=== PATIENT | male | born 1985 | race Caucasian/White ===

== ENCOUNTER 2017-05-06 03:12 | Day surgery (SDC) | payer OTHER ==
[2017-05-06] VITALS (25 sets, daily range): BP systolic 112–148; BP diastolic 55–86; PULSE 18–112; RESP 10–25; TEMP 98.3; Ht 177.8 cm; Wt 94.0 kg
[~2017-05-06] VITALS: Ht 177.8 cm; Wt 94.0 kg
[2017-05-06] MEDS ORDERED: SOD CHLORIDE 0.9% 1,000 ML IV STA (04:35)
[2017-05-06] MEDS ORDERED: morphine 4 MG/ML VIAL IV STA (04:35)
[2017-05-06] MEDS ORDERED: ONDANSETRON 4 MG INJ IV STA (04:35)
[2017-05-06 04:53] LABS: BASOPHILS % 0.1 % (0.0-2.0); EOSINOPHILS % 0.1 % (0.0-7.0); HEMATOCRIT 41.1 % (42.0-52.0); HEMOGLOBIN 13.9 g/dl (14.0-18.0); LYMPHOCYTES # 1.1 10^3/ul (0.8-2.9); LYMPHOCYTES % 7.4 % (15.0-51.0); MEAN CORPUSCULAR HEMOGLOBIN 30.2 pg (29.0-33.0); MEAN CORPUSCULAR HGB CONC 33.8 g/dl (32.0-37.0); MEAN CORPUSCULAR VOLUME 89.3 fl (82.0-101.0); MEAN PLATELET VOLUME 10.3 fl (7.4-10.4); MONOCYTE # 0.7 10^3/ul (0.3-0.9); MONOCYTES % 4.9 % (0.0-11.0); NEUTROPHIL # 12.3 10^3/ul (1.6-7.5); PLATELET COUNT 236 10^3/UL (140-415); RED CELL DISTRIBUTION WIDTH 13.1 % (11.5-14.5); WHITE BLOOD COUNT 14.2 10^3/ul (4.8-10.8)
[2017-05-06 04:59] LABS: ADD UMIC YES; UR AMORPHOUS CRYSTAL FEW /HPF (NONE SEEN); UR ASCORBIC ACID NEGATIVE (NEGATIVE); UR BILIRUBIN (Dip) NEGATIVE (NEGATIVE); UR BLOOD (Dip) NEGATIVE (NEGATIVE); UR CLARITY CLOUDY (CLEAR); UR COLOR YELLOW (YELLOW); UR GLUCOSE (Dip) 1+ mg/dL (NEGATIVE); UR KETONES (Dip) NEGATIVE (NEGATIVE); UR LEUKOCYTE ESTERASE (Dip) NEGATIVE Leu/ul (NEGATIVE); UR NITRITE (Dip) NEGATIVE (NEGATIVE); UR RBC 0 /HPF (0-5); UR SPECIFIC GRAVITY (Dip) 1.023 (1.003-1.030); UR TOTAL PROTEIN (Dip) 1+ mg/dl (NEGATIVE); UR UROBILINOGEN (Dip) NEGATIVE (NEGATIVE)
[2017-05-06 05:13] LABS: INR 1.04; PROTIME 13.6 Sec (12.2-14.2); PT RATIO 1.1
[2017-05-06 05:14] LABS: PARTIAL THROMBOPLASTIN TIME 32.7 Sec (25.0-35.0)
[2017-05-06 05:37] LABS: ALBUMIN 4.7 g/dl (3.3-4.9); ALBUMIN/GLOBULIN RATIO 1.27; BILIRUBIN,INDIRECT 0.5 mg/dl (0-1.1); BILIRUBIN,TOTAL 0.5 mg/dl (0.2-1.3); CALCIUM 9.3 mg/dl (8.4-10.2); CREATININE 0.78 mg/dl (0.61-1.24); TOTAL PROTEIN 8.4 g/dl (6.1-8.1)
--- NOTE | 2017-05-06 06:00 | ERA ---
ER Documentation Chief Complaint Date/Time DATE: 05/06/17 TIME: 05:49 Chief Complaint mid abd pain x 1 day, vomiting HPI 31-year-old male presenting with lower abdominal pain for 1 day. The pain started after he ate something and progressively got worse throughout the day. The pain has been constant, aching, worse with movement. Associated with nonbloody and nonbilious vomiting. He denies any associated diarrhea. No associated fevers or chills. Last BM was this morning and was normal. ROS All systems reviewed and are negative except as per history of present illness. Medications Home Meds Active Scripts Ferrous Sulfate* (Ferrous Sulfate*) 325 Mg Tabec, 325 MG PO DAILY for 30 Days, TAB Prov:JOSE J MERIDA 05/07/17 Hydrocodone Bit-Acetaminophen (Hydrocodone Bit-APAP) 5-325MG Tablet, 1 TAB PO Q4 Y for MODERATE PAIN LEVEL 4-6, #30 TAB Prov:JOSE J MERIDA 05/07/17 Docusate Sodium* (Colace*) 100 Mg Capsule, 100 MG PO BID Y for CONSTIPATION, # 30 CAP Prov:JOSE J MERIDA 05/07/17 Cephalexin* (Keflex*) 500 Mg Capsule, 500 MG PO Q8, #15 CAP Prov:JOSE J MERIDA 05/07/17 Allergies Allergies: Coded Allergies: No Known Allergy (Unverified , 05/06/17) PMhx/Soc Medical and Surgical Hx: pt denies Medical Hx, pt denies Surgical Hx History of Surgery: No Anesthesia Reaction: No Hx Neurological Disorder: No Hx Respiratory Disorders: No Hx Cardiac Disorders: No Hx Psychiatric Problems: No Hx Miscellaneous Medical Probl: No Hx Alcohol Use: Yes (REGULAR BASIS) Hx Substance Use: No Hx Tobacco Use: No Smoking Status: Never smoker FmHx Family History: No diabetes Physical Exam Vitals Vital Signs Date Time Temp Pulse Resp B/P Pulse Ox O2 Delivery O2 Flow Rate FiO2 05/06/17 04:49 98.3 67 20 120/81 97 Room Air 05/06/17 03:20 98.2 60 20 131/73 98 Physical Exam Const: Appears to be in mild distress, nontoxic Head: Atraumatic Eyes: Normal Conjunctiva ENT: Normal External Ears, Nose and Mouth. Neck: Full range of motion..~ No meningismus. Resp: Clear to auscultation bilaterally Cardio: Regular rate and rhythm, no murmurs Abd: Soft, diffuse mild tenderness, more localized in the right lower quadrant. non distended. Negative Blue sign. Normal bowel sounds Skin: No petechiae or rashes, somewhat pale Back: No midline or flank tenderness Ext: No cyanosis, or edema Neur: Awake and alert Psych: Normal Mood and Affect Result Diagram: 05/07/17 0453 05/07/17 0453 Results 24 hrs Laboratory Tests Test 05/06/17 04:25 White Blood Count 14.210^3/ul Red Blood Count 4.6010^6/ul Hemoglobin 13.9g/dl Hematocrit 41.1% Mean Corpuscular Volume 89.3fl Mean Corpuscular Hemoglobin 30.2pg Mean Corpuscular Hemoglobin Concent 33.8g/dl Red Cell Distribution Width 13.1% Platelet Count 46456^3/UL Mean Platelet Volume 10.3fl Neutrophils % 87.0% Lymphocytes % 7.4% Monocytes % 4.9% Eosinophils % 0.1% Basophils % 0.1% Nucleated Red Blood Cells % 0.0/100WBC Neutrophils # 12.310^3/ul Lymphocytes # 1.110^3/ul Monocytes # 0.710^3/ul Eosinophils # 0.010^3/ul Basophils # 0.010^3/ul Nucleated Red Blood Cells # 0.010^3/ul Prothrombin Time 13.6Sec Prothrombin Time Ratio 1.1 INR International Normalized Ratio 1.04 Activated Partial Thromboplast Time 32.7Sec Urine Color YELLOW Urine Clarity CLOUDY Urine pH 7.0 Urine Specific [place] 1.023 Urine Ketones NEGATIVEmg/dL Urine Nitrite NEGATIVEmg/dL Urine Bilirubin NEGATIVEmg/dL Urine Urobilinogen NEGATIVEmg/dL Urine Leukocyte Esterase NEGATIVELeu/ul Urine Microscopic RBC 0/HPF Urine Microscopic WBC 1/HPF Urine Amorphous Crystals FEW/HPF Urine Hemoglobin NEGATIVEmg/dL Urine Glucose 1+mg/dL Urine Total Protein 1+mg/dl Sodium Level 143mmol/L Potassium Level 4.0mmol/L Chloride Level 98mmol/L Carbon Dioxide Level 28mmol/L Anion Gap 21 Blood Urea Nitrogen 13mg/dl Creatinine 0.78mg/dl Glucose Level 157mg/dl Calcium Level 9.3mg/dl Iron Level 61ug/dl Total Iron Binding Capacity 342ug/dl Percent Iron Saturation 18% SAT Total Bilirubin 0.5mg/dl Direct Bilirubin 0.00mg/dl Indirect Bilirubin 0.5mg/dl Aspartate Amino Transf (AST/SGOT) 148IU/L Alanine Aminotransferase (ALT/SGPT) 211IU/L Alkaline Phosphatase 90IU/L Total Protein 8.4g/dl Albumin 4.7g/dl Globulin 3.70g/dl Albumin/Globulin Ratio 1.27 Lipase 66U/L Hepatitis B Surface Antigen NEGATIVE Hepatitis B Core Total Antibody NEGATIVE Hepatitis C Antibody NEGATIVE Current Medications Medications (Trade) Dose Ordered Sig/Eloy Route PRN Reason Start Time Stop Time Status Last Admin Dose Admin Sodium Chloride (NS) 1,000 ml @ 1,000 mls/hr Q1H STAT IV 05/06/17 04:35 05/06/17 05:34 DC 05/06/17 04:44 Morphine Sulfate (morphine) 4 mg ONCE STAT IV 05/06/17 04:35 05/06/17 04:37 DC 05/06/17 04:44 Ondansetron HCl (Zofran Inj) 4 mg ONCE STAT IV 05/06/17 04:35 05/06/17 04:37 DC 05/06/17 04:44 Hydromorphone HCl 1 mg 1 mg ONCE STAT IV 05/06/17 06:13 05/06/17 06:14 DC 05/06/17 06:19 Piperacillin Sod/ Tazobactam Sod (Zosyn 3.375gm/ 100 ml (Pmx)) 100 ml @ 200 mls/hr ONCE ONCE IVPB 05/06/17 06:30 05/06/17 06:59 DC 05/06/17 06:40 Ondansetron HCl (Zofran Inj) 4 mg BRIDGE ORDER PRN IV NAUSEA AND/OR VOMITING 05/06/17 07:00 05/06/17 15:15 DC Acetaminophen (Tylenol Tab) 650 mg ER BRIDGE PRN PO MILD PAIN/FEVER 05/06/17 07:00 05/06/17 15:14 DC Procedures/MDM CBC: leukocytosis CMP: mild transaminitis UA: no evidence of infection CT abdomen and pelvis MDM Patient is presenting with right lower quadrant pain, concerning for acute appendicitis. Less likely diverticulitis, colitis, perforated viscus, biliary etiology, or pancreatitis .I do not suspect aortic or cardiac etiology. CT abdomen and pelvis were ordered and is pending. Painmedications and IV fluids given. Patient was signed out to Dr. Shaffer pending results of CT. Departure Diagnosis: Primary Impression: Abdominal pain Qualified Code: R10.31 - Right lower quadrant abdominal pain Additional Impression: Nausea and vomiting Qualified Code: R11.2 - Non-intractable vomiting with nausea, unspecified vomiting type Condition: YADY Garcia MD May 06, 2017 06:00
[2017-05-06] MEDS ORDERED: HYDROmorphONE 1 MG/ML SYG IV STA (06:13)
--- NOTE | 2017-05-06 06:25 | RADRPT ---
PROCEDURE: CT ABDOMEN/PELVIS WITHOUT CONTRAST CLINICAL INDICATION: 31-year-old male with abdominal pain. TECHNIQUE: The study was performed utilizing a [employer] Mapeed VCT 64-slice CT scanner. Direct axia l sections were obtained through the abdomen and pelvis without the use of intravenous contrast mate rial. Sagittal and coronal reformations were obtained. One or more of the following dose reduction t echniques were utilized: automated exposure control, adjustment of the mA and/or kV according to pat ient's size or use of iterative reconstruction technique. The images were reviewed on a PACS workst at[employer]. CTD/vol = 18.1 mGy; Total Exam DLP = 1209.7 mGy-cm. COMPARISON: None. FINDINGS: There is trace bibasilar subsegmental atelectasis. There is no evidence for significant pleural eff usion. The liver has a normal size and contour without focal areas of abnormal density. No intrahep atic nor extrahepatic biliary ductal dilatation is seen. The gallbladder demonstrates no wall thicke analisa nor pericholecystic fluid. No biliary stones are evident. The pancreas is without areas of abno rmal attenuation. The spleen is identified and has a normal size without abnormal density. The adre nal glands are unremarkable. The right kidney is without abnormal density, calculi or obstruction. There is a mid left renal cyst measuring approximately 2.7 x 2.9 x 2.8 cm.. No hydroureteronephrosis nor nephroureterolithiasis is evident. The urinary bladder contains urine. There is no evidence for bowel obstruction. There is an appendicolith within the proximal appendix measuring approximately 5 x 5 mm. The appendix is retrocecal and diffusely edematous measuring up to 14 mm with surrounding inflammatory changes consistent with acute appendicitis. There is no significant pelvic free fluid. The prostate is not enlarged. The aortoiliac vessels are without aneurysmal dilatation. The osseous structures are intact. IMPRESSION: 1. Diffusely edematous retrocecal appendix measuring up to 14 mm with surrounding inflammatory townsend ges consist with acute appendicitis. 2. Left renal cyst. CRITICAL RESULTS: A call report was made to [facility] ER Dr. Shaffer on May 06, 2017 at 06:20 a.m. .Rito Fenton MD, MD Date Time Electronically viewed and signed by .Rito Fenton MD, on 05/06/2017 06:25 .M/
[2017-05-06] MEDS ORDERED: PIPER-TAZO 3.375 GM IV (PMX) 100 ML IVPB ONE (06:30)
--- NOTE | 2017-05-06 06:57 | QN ---
Documentation Comment Patient endorsed to me pending CT imaging. CT confirms acute appendicitis. IMPRESSION: 1. Diffusely edematous retrocecal appendix measuring up to 14 mm with surrounding inflammatory changes consist with acute appendicitis. 2. Left renal cyst. The patient was informed of these findings. His pain is well controlled. He was given Zosyn. He has received IV fluids. General surgeon on-call, Dr. Carvalho has been notified and will take the patient to the operating room today. The patient is made n.p.o. Accepting care team and consultations: I discussed the current laboratory data, diagnostic imaging and emergency care provided. Admitting team: Dr. Jim Admitting team indication: Insurance directed Consulting services: Dr. Carvalho Diagnostic impression: Acute appendicitis SINAN TAMAYO MD May 06, 2017 06:57
[2017-05-06] MEDS ORDERED: ACETAMINOPHEN 325 MG TAB PO PRN ×2 (07:00→15:30)
[2017-05-06] MEDS ORDERED: ONDANSETRON 4 MG INJ IV PRN ×4 (07:00→15:30)
[2017-05-06] MEDS ORDERED: DEXTROSE 5%-0.45% NACL 1,000 ML IV SCH (08:34)
[2017-05-06] MEDS ORDERED: NACL 0.9% 3 ML SYG IV SCH ×2 (09:00→15:30)
[2017-05-06] MEDS ORDERED: ALBUTEROL/IPRATROPIUM (NEB) 3 ML AMP HHN PRN (09:00)
[2017-05-06] MEDS ORDERED: morphine 4 MG/ML VIAL IV PRN (09:00)
[2017-05-06] MEDS ORDERED: ONDANSETRON 4 MG INJ ONE (11:19)
[2017-05-06] MEDS ORDERED: NEOSTIGMINE 3 MG/3 ML SYRINGE ONE (11:19)
[2017-05-06] MEDS ORDERED: PROPOFOL 20 ML ONE (11:19)
[2017-05-06] MEDS ORDERED: FENTAnyl 50 MCG/ML VIAL ONE ×2 (11:19→12:41)
[2017-05-06] MEDS ORDERED: CEFAZOLIN 1 GM INJ ONE (11:19)
[2017-05-06] MEDS ORDERED: MIDAZOLAM 1 MG/ML 2 ML INJ ONE (11:19)
[2017-05-06] MEDS ORDERED: DEXAMETHASONE 4 MG/ML 1 ML INJ ONE (11:19)
[2017-05-06] MEDS ORDERED: ROCURONIUM 50 MG INJ ONE (11:19)
[2017-05-06] MEDS ORDERED: GLYCOPYRROLATE 0.4 MG INJ ONE (11:19)
[2017-05-06] MEDS ORDERED: BUPIVACAINE 0.25%/EPI (SDV) 30 ML INJ ONE (11:57)
[2017-05-06] MEDS ORDERED: FENTAnyl 50 MCG/ML VIAL IV PRN ×3 (12:00)
[2017-05-06] MEDS ORDERED: LABETALOL HCL 20MG INJ IV PRN (12:00)
[2017-05-06] MEDS ORDERED: TRIMETHOBENZAMIDE 100 MG/ML VIAL IM PRN (12:00)
[2017-05-06] MEDS ORDERED: MIDAZOLAM 1 MG/ML 2 ML INJ IV PRN (12:00)
[2017-05-06] MEDS ORDERED: IPRATROPIUM (NEB) 0.5 MG/2.5 ML AMP HHN PRN (12:00)
[2017-05-06] MEDS ORDERED: ALBUTEROL 0.083% (NEB) 2.5 MG/3 ML AMP HHN PRN (12:00)
[2017-05-06] MEDS ORDERED: OXYCODONE/ACETAMINOPHEN (5/325) TAB PO PRN ×2 (12:00)
[2017-05-06] MEDS ORDERED: MEPERIDINE 25 MG INJ IV PRN (12:00)
[2017-05-06] MEDS ORDERED: EPHEDrine SULFATE 50 MG/5 ML SYG IV PRN (12:00)
[2017-05-06] MEDS ORDERED: DIPHENHYDRAMINE 50 MG INJ IV PRN (12:00)
[2017-05-06] MEDS ORDERED: hydrALAzine 20 MG INJ IV PRN (12:00)
[2017-05-06] MEDS ORDERED: HYDROmorphONE (0.2 MG/ML) 10ML SYG IV PRN ×3 (12:00)
[2017-05-06] MEDS ORDERED: PIPER-TAZO 3.375 GM IV (PMX) 100 ML ONE (12:11)
--- NOTE | 2017-05-06 12:14 | CONS ---
Date/Time of Note Date/Time of Note DATE: 05/06/17 TIME: 12:13 Assessment/Plan Assessment/Plan Additional Assessment/Plan [facility] INPATIENT CONSULTATION NOTE DATE OF SERVICE: 05/06/2017 PLACE OF SERVICE: [facility], preoperative area ASSESSMENT AND PLAN: A very-pleasant 31-year-old gentleman with only known comorbidity of BMI 29.7, admitted to [facility] emergency department with signs and symptoms consistent with acute appendicitis, associated with elevated white blood cell count of [address] scan that demonstrated a nonperforated but dilated appendix was retrocecal. I reviewed the rationale behind my recommendation for laparoscopic, possible open appendectomy with the patient, described the operation in detail including the risks, benefits and alternatives, and answered all their questions to the best my ability. Both patient and his appear to understand and agreed with proceeding with surgery. With above assessment, I've recommended the followin. To the operating room for above Thank you very much for having me involved in the care of this very pleasant patient and wonderful family. If you have any questions, please feel free to contact me at [phone]. Nature of presenting problem: Moderate severity Please note that, given the multiple number of diagnoses or management options, the moderate amount and/or complexity of data needed to be reviewed, and moderate risk of complications and/or morbidity or mortality, this qualifies as moderate complexity type of decision-making. Disclaimer: Inadvertent spelling and grammatical errors are likely due to EHR/ dictation software use and do not reflect on the quality of delivered patient care. Also, please note that the electronic time recorded on this node does not necessarily reflect the actual time of the visit. Updated clinical summary: A very-pleasant 31-year-old gentleman with only known comorbidity of BMI 29.7, admitted to [facility] emergency department on 05/06/2017 with signs and symptoms consistent with acute appendicitis, associated with elevated white blood cell count of [address] scan that demonstrated a nonperforated but dilated appendix was retrocecal. Comorbidities: 1. BMI 29.7 2. Left renal cyst (CT abdomen and pelvis, [facility], 2016) CONSULTATION REQUESTED BY: Rosalva Jim MD HISTORY OF PRESENT ILLNESS: The patient is a very pleasant 31-year-old gentleman with only known comorbidity of BMI 29.7, admitted to [facility] emergency department with signs and symptoms consistent with acute appendicitis, associated with elevated white blood cell count of [address] scan that demonstrated a nonperforated but dilated appendix was retrocecal. Patient described 1 day history of abdominal pain that started periumbilical and had some localization to the right lower quadrant, associated with nausea and multiple episodes of nonbloody emesis. He also described no major issues with constipation or diarrhea, blood in the stool or urine, or other major problems. No associated fevers or chills. No other reported health problems. ALLERGIES: NO KNOWN DRUG ALLERGIES MEDICATIONS Documented in the electronic records and reviewed by me. Please see the electronic records for details, as well as details for inpatient medications which were also reviewed by me. SOCIAL HISTORY: The patient lives with family. Him and his have 4 children. 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 REVIEW OF SYSTEMS: Other than mentioned above, there were no other pertinent positives or pertinent negatives in an otherwise complete 14 point review of systems. PHYSICAL EXAMINATION GENERAL: The patient appears to be a very pleasant gentleman of descent lying in bed, appearing stated age, and otherwise in no acute distress. BMI: 29.7 VITAL SIGNS: AVSS (please also see auto important data if available as well as the electronic records) HEENT: Normocephalic and atraumatic. Extraocular muscles and hearing are grossly intact bilaterally and symmetrically. Sclerae are nonicteric. Oral cavity is clear; oral mucosa appear to be pink and moist. Dentition: fair. NECK: Supple. There is no lymphadenopathy or JVD. There is no submental, submandibular or supraclavicular lymphadenopathy. CHEST: Rises symmetrically with each breath; patient is breathing comfortably. There are no audible wheezes, rales or rhonchi on the gross exam. HEART: Pulse is regular and palpable on the right wrist. Capillary refill is normal. Carotid pulses are palpable bilaterally and symmetrically in the neck. EXTREMITIES: Lower extremities contain no pitting edema around the ankles bilaterally and symmetrically. ABDOMEN: Abdomen is soft, mildly tender in the right lower quadrant and nondistended. No evidence of ascites, organomegaly, caput medusae, engorged subcutaneous veins, or other abnormalities. There are no peritoneal signs or guarding. SKIN: Appears to be pink and feels warm to touch. NEUROLOGIC: Awake, alert, and follows commands appropriately. LABORATORY DATA: White blood cell count 14.2, hemoglobin 13.9, platelets 236. CO2 28, creatinine 0.78, total bilirubin 0.5, AST 148, ALT 211, alkaline phosphatase 90. Albumin 4.7 before hydration. Lipase 66. INR 1.04. Urinalysis negative. IMAGING: See electronic chart. Please note that I've personally reviewed all pertinent available images and I agree in general with their overall reported findings. CT scan abdomen and pelvis 05/06/2017 [facility] IMPRESSION: 1. Diffusely edematous retrocecal appendix measuring up to 14 mm with surrounding inflammatory changes consist with acute appendicitis. 2. Left renal cyst. Consultation Date/Type/Reason Admit Date/Time Social History Smoking Status: Never smoker Exam/Review of Systems Vital Signs Vitals Vital Signs Date Time Temp Pulse Resp B/P Pulse Ox O2 Delivery O2 Flow Rate FiO2 05/06/17 10:21 98.3 73 20 115/78 97 Room Air Results Result Diagram: 05/06/17 0425 05/06/17 0425 Results 24 hrs Laboratory Tests Test 05/06/17 04:25 White Blood Count 14.2 H Red Blood Count 4.60 L Hemoglobin 13.9 L Hematocrit 41.1 L Mean Corpuscular Volume 89.3 Mean Corpuscular Hemoglobin 30.2 Mean Corpuscular Hemoglobin Concent 33.8 Red Cell Distribution Width 13.1 Platelet Count 236 Mean Platelet Volume 10.3 Neutrophils % 87.0 H Lymphocytes % 7.4 L Monocytes % 4.9 Eosinophils % 0.1 Basophils % 0.1 Nucleated Red Blood Cells % 0.0 Neutrophils # 12.3 H Lymphocytes # 1.1 Monocytes # 0.7 Eosinophils # 0.0 Basophils # 0.0 Nucleated Red Blood Cells # 0.0 Prothrombin Time 13.6 Prothrombin Time Ratio 1.1 INR International Normalized Ratio 1.04 Activated Partial Thromboplast Time 32.7 Urine Color YELLOW Urine Clarity CLOUDY A Urine pH 7.0 Urine Specific [place] 1.023 Urine Ketones NEGATIVE Urine Nitrite NEGATIVE Urine Bilirubin NEGATIVE Urine Urobilinogen NEGATIVE Urine Leukocyte Esterase NEGATIVE Urine Microscopic RBC 0 Urine Microscopic WBC 1 Urine Amorphous Crystals FEW A Urine Hemoglobin NEGATIVE Urine Glucose 1+ H Urine Total Protein 1+ H Sodium Level 143 Potassium Level 4.0 Chloride Level 98 Carbon Dioxide Level 28 Anion Gap 21 H Blood Urea Nitrogen 13 Creatinine 0.78 Glucose Level 157 Calcium Level 9.3 Total Bilirubin 0.5 Direct Bilirubin 0.00 Indirect Bilirubin 0.5 Aspartate Amino Transf (AST/SGOT) 148 H Alanine Aminotransferase (ALT/SGPT) 211 H Alkaline Phosphatase 90 Total Protein 8.4 H Albumin 4.7 Globulin 3.70 H Albumin/Globulin Ratio 1.27 Lipase 66 Medications Medications Current Medications Dextrose/Sodium Chloride (D5-1/2ns) 1,000 ml @ 120 mls/hr Q8H20M IV Last administered on 05/06/17 09:01; Admin Dose 120 MLS/HR; Start 05/06/17 at 08:34 Ondansetron HCl (Zofran Inj) 4 mg Q6H PRN IV NAUSEA AND/OR VOMITING; Start at 09:00 Morphine Sulfate (morphine) 4 mg Q4H PRN IV pain Last administered on 10:22; Admin Dose 4 MG; Start 05/06/17 at 09:00 SANNA ESTEVEZ M.D. May 06, 2017 12:14
[2017-05-06] MEDS ORDERED: SUGAMMADEX SODIUM 200 MG/2 ML VIAL IV ONE (13:14)
--- NOTE | 2017-05-06 13:42 | OPR ---
Date/Time of Note Date/Time of Note DATE: 05/06/17 TIME: 13:42 Operative Report Procedure Description [facility] INPATIENT OPERATIVE NOTE PLACE OF SERVICE: [facility] DATE OF SURGERY: 05/06/2017 PREOPERATIVE DIAGNOSIS: 1. Acute retrocecal appendicitis 2. BMI 29.7 3. Left renal cyst (CT abdomen and pelvis, [facility], 2016) POSTOPERATIVE DIAGNOSIS: 1. Acute retrocecal appendicitis 2. BMI 29.7 3. Left renal cyst (CT abdomen and pelvis, [facility], 2016) OPERATION: 1. Laparoscopic appendectomy SURGEON: Sanna Estevez M.D. FOUR SLIDE OPERATOR: None ANESTHESIA: General endotracheal tube anesthesia ANESTHESIOLOGIST: Jim Alvarado M.D. BRIEF SUMMARY: An otherwise uncomplicated laparoscopic appendectomy was performed with findings of non-perforated retrocecal appendicitis. Updated clinical summary: A very-pleasant 31-year-old gentleman with only known comorbidity of BMI 29.7, admitted to [facility] emergency department on 05/06/2017 with signs and symptoms consistent with acute appendicitis, associated with elevated white blood cell count of [address] scan that demonstrated a nonperforated but dilated appendix was retrocecal. Comorbidities: 1. BMI 29.7 2. Left renal cyst (CT abdomen and pelvis, [facility], 2016) BRIEF HISTORY: The patient is a very pleasant 31-year-old gentleman with only known comorbidity of BMI 29.7, admitted to [facility] emergency department on 05/06/2017 with signs and symptoms consistent with acute appendicitis, associated with elevated white blood cell count of [address] scan that demonstrated a nonperforated but dilated appendix was retrocecal. I met with the patient and family and counseled them regarding the possible options of treatment, and I strongly suggested a laparoscopic, possible open appendectomy. We reviewed the operation in detail as well as the risks, benefits , alternatives, and expected outcomes of this operation. After careful consideration of all the risks, benefits, and alternatives, the patient and family appeared to understand those risks and wished to proceed with surgery. For a detailed report of my consultation with patient and family, please refer to my separate consultation note. STATEMENT OF THE INFORMED CONSENT: The patient and family appeared to understand the risks of the operation to include, but not be limited to risk of postoperative pain and scar tissue, possible infection or bleeding requiring other interventions such as opening the wound, placement of drainage catheters, or other operative interventions; possible injury to surrounding to structures including bowel, bladder, bile duct, or blood vessels, or solid organs such as liver, kidney, or pancreas requiring other interventions or procedures; possible leakage of bowel from anastomotic sites or suture lines causing significant increase in morbidity and mortality and requiring multiple interventions including but not limited to, placement of drainage catheters, imaging studies, as well as operative interventions; possible other source of sepsis such as urinary tract infections or pneumonias, or other sources of potentially life threatening problems such as deep venous thrombus formation causing pulmonary embolism, myocardial arrhythmias and infarctions, and even . After careful consideration of all their options, the patient and family appeared to understand and wished to proceed with surgery. DESCRIPTION OF PROCEDURE: After obtaining informed consent, the patient was brought into the operating room and was placed in a normal supine position, where successful general endotracheal tube anesthesia was performed. Intravenous access was already in place and intravenous antimicrobials had been appropriately chosen and dosed prior to the operation. The patient's abdominal skin was prepped and draped from the nipple line down to the level of the upper thighs in the usual sterile fashion. We then called a surgical time-out where the patient's identification, date of , nature of the operation, allergies , presence of intravenous antimicrobials, presence of needed equipment, and any other concerns were reviewed and agreed upon by all members of the operating room team. We then started the operation by placing a 5 mm skin incision in the left lower quadrant and then introduced a 5 mm [employer] trocar into the peritoneal space, visualizing all the layers of the abdominal wall as we entered. Note that there was no indication of any injury to underlying structures with our entry into the peritoneal space. We insufflated the abdominal cavity to a maximum pressure of 15 mmHg and again inspected the area of insertion and ensured no obvious injury to underlying structures prior to inspecting the abdominal cavity and showing no obvious pus, bowel contents, or other abnormal features. We could not see the appendix very well. We, therefore, injected the future sites of our other trocars with 0.25% Marcaine with epinephrine and placed a 5 mm [employer] trocar into the midline suprapubic area, taking care not to injure the bladder. Note that the patient had not urinated prior to the operation, and bladder was somewhat full. We also placed a 12 mm trocar in the umbilical midline area, all under direct visualization. With our instruments in place, we had excellent visualization and access to the right lower quadrant. We then identified the terminal ileum going into the cecum. The terminal ileum and cecum were both adhesions onto the right lower abdominal wall area. I therefore mobilized this region using cautery and blunt dissection and identified a retrocecal appendix that appeared to be inflamed and consistent with diagnosis of acute appendicitis. The appendix had a normal base coming out of the cecum. I then went ahead and used judicious amount of cautery as well as mostly blunt dissection to circumferentially isolate the base of the appendix and then transected this using one firing of the white load of the Endo -VLADIMIR stapler. We also repeated the firing on the mesentery of the appendix and completely disconnected the organ from the colon, delivered this out through the 12 mm trocar site inside of an EndoCatch bag without having to enlarge the fascial defect as well as without contaminating the wound. The specimen was sent to Pathology for further analysis. We then ensured adequate hemostasis and bile stasis, removed all our equipment including the pneumoperitoneum from the abdominal cavity prior to closing the infraumbilical fascia with 1 figure-of- eight 0 Vicryl suture on a UR-6 needle, washing the wounds with copious amounts of normal saline, injecting the initial insertion point of the trocar with 0.25 % Marcaine with epinephrine, and then closing the skin using interrupted 4-0 Monocryl sutures. Light dressing was then applied. At the end of the operation, both the sponge count and needle count were reportedly correct x2. The patient tolerated the procedure without any reported complications. ESTIMATED BLOOD LOSS: Less than 10 mL. BLOOD OR BLOOD PRODUCT TRANSFUSIONS: None to my knowledge. SPECIMENS: 1. Appendix COMPLICATIONS: None. DISPOSITION: Recovery area. Disclaimer: Inadvertent spelling and grammatical errors are likely due to EHR/ dictation software use and do not reflect on the quality of delivered patient care. SANNA ESTEVEZ M.D. May 06, 2017 13:42
[2017-05-06] MEDS: D5W-0.45 NACL + KCL 20 MEQ 1,000 ML IV SCH ×2 (13:57→23:35)
[2017-05-06] MEDS ORDERED: DOCUSATE SODIUM 100 MG CAP PO PRN ×2 (14:00→15:30)
[2017-05-06] MEDS ORDERED: NA PHOSPHATE/BIPHOS 133 ML ENEMA PR PRN (14:00)
[2017-05-06] MEDS ORDERED: HYDROCODONE/APAP (5/325) TAB PO PRN ×4 (14:00→15:30)
[2017-05-06] MEDS ORDERED: HYDROmorphONE 1 MG/ML SYG IV PRN ×2 (14:00)
[2017-05-06] MEDS ORDERED: BISACODYL 10 MG SUPP PR PRN ×2 (14:00→15:30)
--- NOTE | 2017-05-06 15:10 | HP ---
Date/Time of Note Date/Time of Note DATE: 05/06/17 TIME: 15:06 Assessment/Plan VTE Prophylaxis VTE Prophylaxis Intervention: SCD's Lines/Catheters IV Catheter Type (from [facility]): Peripheral IV Assessment/Plan Chief Complaint/Hosp Course Assessment and plan 1. Abdominal pain secondary to acute appendicitis. Patient status post left scopic appendectomy. Patient with good response. Continue with analgesics. Advance diet per surgeon recommendations. 2. Leukocytosis secondary to #1. Monitor for now. Likely reactive. 3. Anemia. H&H remained stable at present. Will follow up on iron levels. 4. Transaminitis. Patient does report history of drinking. Moderation was advised. Follow-up on hepatitis panel. Admission process 40 minutes Discussed plan of care with Dr. Lambert Problems: HPI/ROS Admit Date/Time Admit Date/Time Hx of Present Illness This is a 31-year-old male with no reported past medical history came to [facility] due to reports of abdominal pain. According to the patient he started have pain in his abdomen that occurred at 11 AM May 05, 2017. He did report trying to take rnjx-ffk-[id number] medications with no real relief. He did report that pain progressively got worse and at around 11 PM the evening time he took [place] and started to vomit. The next day he subsequently went to [facility] for further evaluation.On further examination he did have a CT scan of his abdomen that did show diffusely edematous appendix with clinical picture of that of acute appendicitis. Patient was seen by general surgeon and placed on IV hydration and analgesics and he did undergo laparoscopic appendectomy. She did respond to treatment well. Patient currently seen on medical surgical floor with no apparent distress. Vital signs remained stable. He of note was seen on laboratory work with leukocytosis with white count of 14.2 and was also slightly anemic and was seen with some transaminitis. We will evaluate him for the aformentiond issues PMH/Family/Social Past Medical History Medical History: no pertinent history Social History Alcohol Use: other (Reports drinking 3 times a week more than 2 alcoholic beverages each session) Smoking Status: Light tobacco smoker Drug Use: none Exam/Review of Systems Vital Signs Vitals Vital Signs Date Time Temp Pulse Resp B/P Pulse Ox O2 Delivery O2 Flow Rate FiO2 05/06/17 14:48 92 17 147/86 95 Room Air Nasal Cannula 05/06/17 14:38 2.0 05/06/17 13:42 97.9 Exam Constitutional: alert, oriented Psych: nl mood/affect Head: normocephalic Respiratory: clear to auscultation Cardiovascular: regular rate and rhythm Gastrointestinal: soft, tender (Minimal) Neurological: REGISTERED DENTAL ASSISTANT II-XII intact, nl mental status, nl speech Skin: other (Surgical site on abdomen clean dry and intact) Labs Result Diagram: 05/06/1742405/06/17424 Medications Medications Current Medications Ondansetron HCl 4 mg 4 mg Q6H PRN IV NAUSEA AND/OR VOMITING; Start 05/06/17 at 09:00 Potassium Chloride/Dextrose/ Sod Cl (D5-1/2ns + KCl 20 Meq) 1,000 ml @ 100 mls/ hr Q10H IV Last administered on 05/06/17t 13:57; Admin Dose 100 MLS/HR; Start 05/06/17 at 13:35 Acetaminophen/ Hydrocodone Bitart ([place] (5/325)) 1 tab Q4H PRN PO PAIN LEVEL 4 -7; Start 05/06/17 at 14:00 Acetaminophen/ Hydrocodone Bitart ([place] (5/325)) 2 tab Q4H PRN PO PAIN LEVEL 7 -10; Start 05/06/17 at 14:00 Hydromorphone HCl (Dilaudid) 0.5 mg Q2H PRN IV PAIN; Start 05/06/17 at 14:00 Hydromorphone HCl (Dilaudid) 1 mg Q2H PRN IV PAIN; Start 05/06/17 at 14:00 Docusate Sodium (Colace) 100 mg BID PRN PO CONSTIPATION; Start 05/06/17 at 14: 00 Bisacodyl (Dulcolax Supp) 10 mg BID PRN HI CONSTIPATION; Start 05/06/17 at 14: 00 Sodium Biphosphate/ Sodium Phosphate (Fleet Enema) 133 ml BID PRN HI CONSTIPATION; Start 05/06/17 at 14:00 Famotidine (Pepcid Iv) 20 mg DAILY IV ; Start 05/07/17 at 09:00 Enoxaparin Sodium (Lovenox) 40 mg DAILY SC ; Start 05/07/17 at 09:00 JOSE J MERIDA May 06, 2017 15:10
[2017-05-06] MEDS ORDERED: MAGNESIUM HYDROXIDE 30ML CUP PO PRN (15:30)
[2017-05-06] MEDS ORDERED: morphine 2 MG INJ IV PRN (15:30)
[2017-05-06] MEDS ORDERED: ACETAMINOPHEN 650 MG SUPP PR PRN (15:30)
[2017-05-06 16:00] LABS: HAAIG REFLEX REFLEX FILED
[2017-05-06 16:07] LABS: IRON 61 ug/dl (35-150)
[2017-05-06 16:16] LABS: TOTAL IRON BINDING CAPACITY 342 ug/dl (241-421)
[2017-05-06 17:41] LABS: HEPATITIS B CORE ANTIBODY NEGATIVE (NEGATIVE)
[2017-05-07] VITALS: BP 122/86; PULSE 88; RESP 17
[2017-05-07 04:00] VITALS: BP 116/82; PULSE 83; RESP 17
[2017-05-07] MEDS: D5W-0.45 NACL + KCL 20 MEQ 1,000 ML IV SCH (04:33)
[2017-05-07 05:29] LABS: BASOPHILS % 0.1 % (0.0-2.0); HEMATOCRIT 40.9 % (42.0-52.0); HEMOGLOBIN 13.9 g/dl (14.0-18.0); LYMPHOCYTES # 1.6 10^3/ul (0.8-2.9); LYMPHOCYTES % 9.8 % (15.0-51.0); MEAN CORPUSCULAR HEMOGLOBIN 30.8 pg (29.0-33.0); MEAN CORPUSCULAR VOLUME 90.5 fl (82.0-101.0); MEAN PLATELET VOLUME 10.4 fl (7.4-10.4); MONOCYTE # 1.1 10^3/ul (0.3-0.9); MONOCYTES % 6.9 % (0.0-11.0); NEUTROPHIL # 13.3 10^3/ul (1.6-7.5); NEUTROPHILS % 82.6 % (39.0-77.0); PLATELET COUNT 251 10^3/UL (140-415); RED BLOOD COUNT 4.52 10^6/ul (4.70-6.10); RED CELL DISTRIBUTION WIDTH 13.5 % (11.5-14.5); WHITE BLOOD COUNT 16.1 10^3/ul (4.8-10.8)
[2017-05-07 06:00] LABS: ALBUMIN 4.2 g/dl (3.3-4.9); ALBUMIN/GLOBULIN RATIO 1.16; BILIRUBIN,INDIRECT 0.5 mg/dl (0-1.1); BILIRUBIN,TOTAL 0.5 mg/dl (0.2-1.3); CALCIUM 9.5 mg/dl (8.4-10.2); CREATININE 0.82 mg/dl (0.61-1.24); MAGNESIUM 2.2 mg/dl (1.7-2.5); PHOSPHORUS 3.8 mg/dl (2.5-4.9); POTASSIUM 4.4 mmol/L (3.5-5.1); TOTAL PROTEIN 7.8 g/dl (6.1-8.1)
[2017-05-07] MEDS ORDERED: PANTOPRAZOLE 40 MG INJ IV SCH (06:00)
[2017-05-07 06:16] LABS: T3 UPTAKE 28.9 % (23.5-40.5)
[2017-05-07 06:30] LABS: THYROID STIMULATING HORMONE 0.864 MIU/L (0.465-4.680)
[2017-05-07] MEDS ORDERED: ENOXAPARIN 40 MG/0.4 ML SYG SC SCH (09:00)
[2017-05-07] MEDS ORDERED: FAMOTIDINE 20 MG INJ IV SCH (09:00)
[2017-05-07 09:38] VITALS: BP 107/60; RESP 20
--- NOTE | 2017-05-07 11:02 | PN ---
Date/Time of Note Date/Time of Note DATE: 05/07/17 TIME: 11:01 Assessment/Plan Lines/Catheters IV Catheter Type (from Nrsg): Peripheral IV Assessment/Plan Assessment/Plan [facility] Progress Note Date of Service: 05/07/2017 Place of service: [facility] fourth floor Today's Assessment & Plan: Overall stable and doing well. No evidence for major postoperative complication or surgical site infection. No indication for acute surgical intervention. With above assessment, I've recommended the following for today: 1. Okay to discharge from my standpoint 2. Please include the following in the patient's discharge instructions: "Please call [phone] if any of fever, nausea, vomiting, discharge from wound, wound redness, increase or sudden pain, blood in stool or vomit, or any other unusual signs or symptoms. Also, please call the same number in a few days to schedule an appointment for your follow up visit. Patient may remove dressings tomorrow. Showers OK starting tomorrow. No swimming , hot tub or bath for 2 weeks. No lifting more than 25 lbs for 8 weeks." Thank you again for your great care of this very pleasant patient and wonderful family. If there are any questions, please feel free to call me at [phone]. Nature of presenting problem: High severity Please note that, given the limited number of diagnoses or management options, the limited amount and/or complexity of data needed to be reviewed, and moderate risk of complications and/or morbidity or mortality, this qualifies as low complexity type of decision-making. Disclaimer: Inadvertent spelling and grammatical errors are likely due to EHR/ dictation software use and do not reflect on the quality of delivered patient care. Also, please note that the electronic time recorded on this node does not necessarily reflect the actual time of the visit. Updated clinical summary: A very-pleasant 31-year-old gentleman with only known comorbidity of BMI 29.7, admitted to [facility] emergency department on 05/06/2017 with signs and symptoms consistent with acute appendicitis, associated with elevated white blood cell count of [address] scan that demonstrated a nonperforated but dilated appendix was retrocecal. Status post an otherwise uncomplicated laparoscopic appendectomy was performed with findings of non-perforated retrocecal appendicitis at [facility] 05/06/2017. Comorbidities: 1. Acute retrocecal appendicitis. Status post an otherwise uncomplicated laparoscopic appendectomy was performed with findings of non-perforated retrocecal appendicitis at [facility] 05/06/2017. 2. BMI 29.7 3. Left renal cyst (CT abdomen and pelvis, [facility], 2016) Subjective: No major events or complaints; no major abd pain and under control with medications; no n/v/d; no sob or cp; + flatus; - BM; + activity Objective: Vitals: See below I's & O's: See below Exam: GENERAL: On exam, the patient was sitting in a chair and appeared to be comfortable and in no acute distress. ABDOMEN: Soft, nontender and nondistended. Incision dressings are clean, dry and intact without any evidence of obvious underlying erythema, edema, discharge , or hernia. There are no peritoneal signs or guarding. SKIN: Skin appears to be pink and feels warm to touch. NEUROLOGIC: Patient is awake, alert, and follows commands appropriately. Labs: See below Exam/Review of Systems Vital Signs Vitals Vital Signs Date Time Temp Pulse Resp B/P Pulse Ox O2 Delivery O2 Flow Rate FiO2 05/07/17 09:38 98.1 64 20 107/60 96 05/07/17 04:00 Room Air 05/06/17 14:38 2.0 Intake and Output 05/06/17 05/06/17 05/07/17 15:00 23:00 07:00 Intake Total 2000 ml 540 ml 1350 ml Output Total 510 ml 800 ml 1100 ml Balance 1490 ml -260 ml 250 ml Results Result Diagram: 05/07/17 0453 05/07/17 0453 SANNA ESTEVEZ M.D. May 07, 2017 11:02
--- NOTE | 2017-05-07 12:09 | PDOCDIS ---
Discharge Instructions DIAGNOSIS Discharge Diagnosis 1. Abdominal pain secondary to acute appendicitis 2. Iron deficiency anemia CONDITION Patient Condition: Stable HOME CARE INSTRUCTIONS: Diet Instructions: Low Fat /Cholesterol ACTIVITY: Activity Restrictions: Slowly Increase Activity Rest between Activity Avoid heavy lifting Bathing Restrictions: Shower OTHER ORDERS: Other Orders: 1.Follow up with Dr. Alfonso Carvalho in one week 2. Please call [phone] if any of fever, nausea, vomiting, discharge from wound, wound redness, increase or sudden pain, blood in stool or vomit, or any other unusual signs or symptoms. Also, please call the same number in a few days to schedule an appointment for your follow up visit. Patient may remove dressings tomorrow. Showers OK starting tomorrow. No swimming , hot tub or bath for 2 weeks. No lifting more than 25 lbs for 8 weeks. JOSE J MERIDA May 07, 2017 12:09
[2017-05-07] MEDS ORDERED: DOCU-144 PO (12:12)
[2017-05-07] MEDS ORDERED: CEPH-443 PO (12:12)
[2017-05-07] MEDS ORDERED: HYDR-3498 PO (12:12)
[2017-05-07] MEDS ORDERED: FER325 PO (12:35)
--- NOTE | 2017-05-07 13:54 | DS ---
Date/Time of Note Date/Time of Note DATE: 05/07/17 TIME: 13:50 Discharge Summary Admission/Discharge Info Admit Date/Time May 06, 2017 at 07:04 Discharge Date/Time Discharge Diagnosis 1. Abdominal pain secondary to acute appendicitis 2. Iron deficiency anemia Patient Condition: Stable Hx of Present Illness This is a 31-year-old male with no reported past medical history came to [facility] due to reports of abdominal pain. According to the patient he started have pain in his abdomen that occurred at 11 AM May 05, 2017. He did report trying to take wtok-tpt-mmhxdlc medications with no real relief. He did report that pain progressively got worse and at around 11 PM the evening time he took [place] and started to vomit. The next day he subsequently went to [facility] for further evaluation.On further examination he did have a CT scan of his abdomen that did show diffusely edematous appendix with clinical picture of that of acute appendicitis. Patient was seen by general surgeon and placed on IV hydration and analgesics and he did undergo laparoscopic appendectomy. She did respond to treatment well. Patient currently seen on medical surgical floor with no apparent distress. Vital signs remained stable. He of note was seen on laboratory work with leukocytosis with white count of 14.2 and was also slightly anemic and was seen with some transaminitis. We will evaluate him for the aformentiond issues Hospital Course This is a 31-year-old male With no reported past medical history came [facility] due to reports of abdominal pain. According to the patient he started have abdominal pain roughly occurring at 11 AM around April. He did attempt to take rwfc-iun-hofiryz medications with no real relief. He did report that that evening he got worse and subsequently went to [facility] the next day. He did have imaging done with CT scan of the abdomen and pelvis that did show findings consistent with acute appendicitis. He was seen by general surgeon and placed on IV hydration as well as analgesics. He did undergo laparoscopic appendectomy with good response. During his course of stay he did improve. otherwise optimized medically. He was instructed to follow-up with general surgeon within a week. The plan of care was discussed with the patient and patient did verbalizes understanding. On the day of discharge patient was in stable condition Discussed plan of care with Dr. Lambert Home Meds Active Scripts Ferrous Sulfate* (Ferrous Sulfate*) 325 Mg Tabec, 325 MG PO DAILY for 30 Days, TAB Prov:JOSE J MERIDA 05/07/17 Hydrocodone Bit-Acetaminophen (Hydrocodone Bit-APAP) 5-325MG Tablet, 1 TAB PO Q4 Y for MODERATE PAIN LEVEL 4-6, #30 TAB Prov:JOSE J MERIDA 05/07/17 Docusate Sodium* (Colace*) 100 Mg Capsule, 100 MG PO BID Y for CONSTIPATION, # 30 CAP Prov:JOSE J MERIDA 05/07/17 Cephalexin* (Keflex*) 500 Mg Capsule, 500 MG PO Q8, #15 CAP Prov:JOSE J MERIDA 05/07/17 Follow-up Plan HOME CARE INSTRUCTIONS: Diet Instructions: Low Fat /Cholesterol ACTIVITY: Activity Restrictions: Slowly Increase Activity Rest between Activity Avoid heavy lifting Bathing Restrictions: Shower OTHER ORDERS: Other Orders: 1.Follow up with Dr. Alfonso Carvalho in one week 2. Please call [phone] if any of fever, nausea, vomiting, discharge from wound, wound redness, increase or sudden pain, blood in stool or vomit, or any other unusual signs or symptoms. Also, please call the same number in a few days to schedule an appointment for your follow up visit. Patient may remove dressings tomorrow. Showers OK starting tomorrow. No swimming , hot tub or bath for 2 weeks. No lifting more than 25 lbs for 8 weeks. Primary Care Provider Care Physician No Primary Time spent on discharge: > 30 minutes Pending Labs Laboratory Tests Test 05/07/17 04:53 White Blood Count 16.110^3/ul (4.8-10.8) Red Blood Count 4.5210^6/ul (4.70-6.10) Hemoglobin 13.9g/dl (14.0-18.0) Hematocrit 40.9% (42.0-52.0) Mean Corpuscular Volume 90.5fl (82.0-101.0) Mean Corpuscular Hemoglobin 30.8pg (29.0-33.0) Mean Corpuscular Hemoglobin Concent 34.0g/dl (32.0-37.0) Red Cell Distribution Width 13.5% (11.5-14.5) Platelet Count 98425^3/UL (140-415) Mean Platelet Volume 10.4fl (7.4-10.4) Neutrophils % 82.6% (39.0-77.0) Lymphocytes % 9.8% (15.0-51.0) Monocytes % 6.9% (0.0-11.0) Eosinophils % 0.0% (0.0-7.0) Basophils % 0.1% (0.0-2.0) Nucleated Red Blood Cells % 0.0/100WBC (0.0-0.0) Neutrophils # 13.310^3/ul (1.6-7.5) Lymphocytes # 1.610^3/ul (0.8-2.9) Monocytes # 1.110^3/ul (0.3-0.9) Eosinophils # 0.010^3/ul (0.0-0.5) Basophils # 0.010^3/ul (0.0-0.1) Nucleated Red Blood Cells # 0.010^3/ul (0.0-0.0) Sodium Level 144mmol/L (135-144) Potassium Level 4.4mmol/L (3.5-5.1) Chloride Level 99mmol/L (97-110) Carbon Dioxide Level 27mmol/L (21-31) Anion Gap 22 (8-16) Blood Urea Nitrogen 12mg/dl (7-20) Creatinine 0.82mg/dl (0.61-1.24) Glucose Level 126mg/dl (70-220) Hemoglobin A1c 5.9% (0-5.9) Calcium Level 9.5mg/dl (8.4-10.2) Phosphorus Level 3.8mg/dl (2.5-4.9) Magnesium Level 2.2mg/dl (1.7-2.5) Total Bilirubin 0.5mg/dl (0.2-1.3) Direct Bilirubin 0.00mg/dl (0.00-0.20) Indirect Bilirubin 0.5mg/dl (0-1.1) Aspartate Amino Transf (AST/SGOT) 62IU/L (15-46) Alanine Aminotransferase (ALT/SGPT) 143IU/L (13-69) Alkaline Phosphatase 78IU/L (42-121) Total Protein 7.8g/dl (6.1-8.1) Albumin 4.2g/dl (3.3-4.9) Globulin 3.60g/dl (1.3-3.2) Albumin/Globulin Ratio 1.16 Triglycerides Level 98mg/dl (0-149) Cholesterol Level 199mg/dl (100-200) LDL Cholesterol, Calculated 130mg/dl HDL Cholesterol 49mg/dl (28-63) Cholesterol/HDL Ratio 4.0RATIO Thyroid Stimulating Hormone (TSH) 0.864MIU/L (0.465-4.680) Free Thyroxine Index 2.49ug/ml (0.65-3.89) Thyroxine (T4) 8.6ug/dl (5.5-11.0) Triiodothyronine (T3) Uptake 28.9% (23.5-40.5) JOSE J MERIDA May 07, 2017 13:54
== END 2017-05-07 14:20 | disposition home or self-care (01) ==
LOC: E/R 03:12 → MS1 07:04 → SDS 07:04 → MS1 07:04 → UNDOADMIN 07:04 → SDS 05-07 14:20 → UNDODISIN 05-07 14:20
PROVIDERS: ATTEND Internal Medicine
DX: K35.80 Unspecified acute appendicitis (principal); Z68.29 Body mass index [BMI] 29.0-29.9, adult
CPT/HCPCS: 36415; 44970; 74176; 80053; 80061; 81001; 83036; 83540; 83690; 83735; 84100; 84436; 84443; 84479; 85025; 85610; 85730; 86704; 86709; 86803; 87340; 88304; 96374; 96375; 96376; C9113; J1100; J1170; J1650; J2250; J2270; J2405; J2543; J3010; J3480; J7030; J7042; Z7502; Z7512; Z7610; J0690; J2710

== ENCOUNTER 2017-05-17 14:13 | Outpatient (CLI) | payer OTHER ==
[~2017-05-17] VITALS: Ht 167.6 cm; Wt 90.5 kg
[~2017-05-17 14:13] MED LIST: CEPH-443 PO; DOCU-144 PO; FER325 PO; HYDR-3498 PO
[2017-05-17 14:15] VITALS: BP 132/81; PULSE 89; RESP 18; Ht 167.6 cm; Wt 90.5 kg
--- NOTE | 2017-05-17 15:34 | PN ---
Date/Time of Note Date/Time of Note DATE: 05/17/17 TIME: 15:32 Assessment/Plan Assessment/Plan Assessment/Plan [facility] Progress Note Date of Service: 05/17/2017 Place of service: [facility] fourth floor Today's Assessment & Plan: Overall stable and doing well. No evidence for major postoperative complication or surgical site infection. No indication for acute surgical intervention. With above assessment, I've recommended the following for today: 1. F/u with PCP 2. F/u with us prn Thank you again for your great care of this very pleasant patient and wonderful family. If there are any questions, please feel free to call me at [phone]. Nature of presenting problem: High severity Please note that, given the limited number of diagnoses or management options, the limited amount and/or complexity of data needed to be reviewed, and moderate risk of complications and/or morbidity or mortality, this qualifies as low complexity type of decision-making. Disclaimer: Inadvertent spelling and grammatical errors are likely due to EHR/ dictation software use and do not reflect on the quality of delivered patient care. Also, please note that the electronic time recorded on this node does not necessarily reflect the actual time of the visit. Updated clinical summary: A very-pleasant 31-year-old gentleman with only known comorbidity of BMI 29.7, admitted to [facility] emergency department on 05/06/2017 with signs and symptoms consistent with acute appendicitis, associated with elevated white blood cell count of [address] scan that demonstrated a nonperforated but dilated appendix was retrocecal. Status post an otherwise uncomplicated laparoscopic appendectomy was performed with findings of non-perforated retrocecal appendicitis at [facility] 05/06/2017. D/c home 05/07. Final path: no malignancy; acute appendicitis. Comorbidities: 1. Acute retrocecal appendicitis. Status post an otherwise uncomplicated laparoscopic appendectomy was performed with findings of non-perforated retrocecal appendicitis at [facility] 05/06/2017. 2. BMI 29.7 3. Left renal cyst (CT abdomen and pelvis, [facility], 2016) Subjective: No major events or complaints since discharge; no major abd pain and under control with medications; no n/v/d; no sob or cp; + flatus; + BM; + activity Objective: Vitals: See below I's & O's: See below Exam: GENERAL: On exam, the patient was sitting in a chair and appeared to be comfortable and in no acute distress. ABDOMEN: Soft, nontender and nondistended. Incisions are clean, dry and intact without any evidence of obvious underlying erythema, edema, discharge, or hernia. There are no peritoneal signs or guarding. SKIN: Skin appears to be pink and feels warm to touch. NEUROLOGIC: Patient is awake, alert, and follows commands appropriately. Labs: See below Exam/Review of Systems Vital Signs Vitals Vital Signs Date Time Temp Pulse Resp B/P Pulse Ox O2 Delivery O2 Flow Rate FiO2 05/17/17 14:15 98.1 89 18 132/81 95 Room Air SANNA ESTEVEZ M.D. May 17, 2017 15:34
== END 2017-05-17 16:45 | disposition home or self-care (01) ==
LOC: HPC 14:13
PROVIDERS: ATTEND Transplant Surgery
DX: Z09 Encounter for follow-up examination after completed treatment for conditions other than malignant neoplasm (principal); Z87.19 Personal history of other diseases of the digestive system; N28.1 Cyst of kidney, acquired
CPT/HCPCS: G0463

== ENCOUNTER 2017-12-06 08:57 | Emergency (ER) | END 2017-12-06 10:07 | disposition home or self-care (01) ==